=== PATIENT | female | born 1970 | race African-American/Black ===

== ENCOUNTER 2016-09-29 21:14 | Emergency (ER) | payer OTHER ==
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
[~2016-09-29 21:14] MED LIST: ORUDIS75 M1 PO
== END 2016-09-29 22:03 | disposition home or self-care (01) ==
LOC: CED 21:14
DX: S39.92XA Unspecified injury of lower back, initial encounter (principal); I10 Essential (primary) hypertension; Z91.14 Patient's other noncompliance with medication regimen; V49.40XA Driver injured in collision with unspecified motor vehicles in traffic accident, initial encounter
CPT/HCPCS: 72100; 99283

== ENCOUNTER 2017-03-23 18:49 | Emergency (ER) | payer OTHER ==
[~2017-03-23] VITALS: Ht 157.5 cm; Wt 147.4 kg
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
== END 2017-03-23 21:52 | disposition home or self-care (01) ==
LOC: CFTX 18:49 → CED 18:49 → CFTX 19:49
DX: S86.811A Strain of other muscle(s) and tendon(s) at lower leg level, right leg, initial encounter (principal); I10 Essential (primary) hypertension; X58.XXXA Exposure to other specified factors, initial encounter
CPT/HCPCS: 29530; 73560; 96372; 99283; J1885

== ENCOUNTER 2017-04-02 20:18 | Emergency (ER) | payer OTHER ==
[~2017-04-02] VITALS: Ht 157.5 cm; Wt 147.4 kg
[2017-04-02] MEDS ORDERED: ATENOLOL (20:21)
[2017-04-02] MEDS ORDERED: CLONIDINE HCL0.1 MG (20:22)
== END 2017-04-02 21:40 | disposition home or self-care (01) ==
LOC: CED 20:18 → CFTX 20:18
DX: M54.41 Lumbago with sciatica, right side (principal); I10 Essential (primary) hypertension
CPT/HCPCS: 96372; 99283; J1885